=== PATIENT | male | born 1955 | race Caucasian/White ===

== ENCOUNTER → 2016-08-21 | Outpatient (CLI) | payer OTHER ==
[~2016-08-21] MED LIST: ADVIN25050 INH; ALBUAER2 INH; ATOM60CA PO; CETI10TA84 PO; CHOL100010 PO; FLUT0.0529; OMEG10007 PO; TAMS0.4C38 PO
== END | disposition home or self-care (01) ==
LOC: C.CPL 16:51
PROVIDERS: ATTEND Podiatrist Foot & Ankle Surgery
DX: Z01.810 Encounter for preprocedural cardiovascular examination (principal)

== ENCOUNTER → 2016-08-23 | Day surgery (SDC) | payer OTHER ==
[2016-08-16 07:50] VITALS: Ht 180.3 cm; Wt 102.3 kg
--- NOTE | 2016-08-22 14:01 | HISTORY & PHYSICAL EXAMINATION ---
DATE OF ADMISSION: 08/23/2016 HISTORY OF PRESENT ILLNESS: A 61-year-old male presents for followup of preoperative evaluation requesting hardware excision on the left foot. He notes no pain or discomfort over the area but would like to have the fixation removed to avoid any complications in the future. The patient denies having any pain. He noticed the pain has resolved with his current surgery, he underwent a cheilectomy with arthrodesis and is requesting surgery and excision of hardware at this time. He notes no associated signs or symptoms. He notes the swelling is nearly resolved. Past treatment and tests include CT recently radiographs from surgery due to the possible risk in the future of leaving the hardware intact. He is requesting surgical intervention for the hardware being removed. PAST SURGICAL HISTORY: Shoulder surgery in 2015, adenoids and tonsillectomy, wisdom tooth removal. PAST MEDICAL HISTORY: Back problems. MEDICATIONS: Fish oil, Zyrtec. ALLERGIES: CLEOCIN. FAMILY HISTORY: Arthrodesis, diabetes and cancer. SOCIAL HISTORY: The patient denies smoking, alcohol use, illicit drug use. REVIEW OF SYSTEMS: Unremarkable except chief complaint. PHYSICAL EXAMINATION: VITAL SIGNS: BP 125/86, tympanic temperature is 98.4, height 5 feet 11, weight 225. Body mass index 31. CONSTITUTIONAL: The patient appears well-developed and nourished with good attention to body grooming and habitus. HEAD AND FACE: Head is normocephalic and atraumatic without any gross head, face, or neck masses. EYES: Conjunctival and pupillary reaction to light and accommodation are normal. EARS, NOSE, MOUTH, AND THROAT: Unremarkable. NECK: Neck is supple. Trachea is midline. CARDIOVASCULAR: Normal S1, S2. LUNGS: Clear to auscultation bilaterally and equal. GASTROINTESTINAL: Positive bowel sounds noted. LOWER EXTREMITY: Feet are pink and warm with no evidence of vascular insufficiency. DERMATOLOGIC: Cicatrix well healed with no hypertrophy over the left foot. NEUROLOGICAL: Touch, pin, vibratory pain, proprioception sensations are normal for postoperative state. MUSCULOSKELETAL: First metatarsophalangeal joint shows evidence of pain. No range of motion and no tenderness on range of motion. DATA: CT scan on 07/21/2016 in the left leg which shows expected findings a fusion of the first metatarsophalangeal joint, fusion appears complete, hardware is intact. No acute fracture within the left foot, mild arthritis within the left midfoot. IMPRESSION: 1. Status post cheilectomy with arthrodesis. 2. Left first metatarsophalangeal joint on 08/11/2015 with retained fixation. 3. Degenerative joint disease history in the left first metatarsophalangeal joint. 4. Hallux limitus history in the left. PLAN: Procedures to be performed 1. Excision of hardware, left foot. This will be performed under general anesthesia as an outpatient at the surgery center. Procedure, risks and complications were fully reviewed with the patient. Consent form, foot diagram and illustration reviewed in all their entirety. All the patient's questions were answered. Complications were discussed in detail with the patient including pain, infection, swelling that may or may not be excessive, pins and needles feeling, numbness, metatarsalgia, excessive bleeding, delay or nonhealing of bone, delay or nonhealing of skin, enlarged scar, failure of the procedure, recurrence or worsening of condition which may or may not require further surgery, adverse reaction to anesthesia, allergic reaction to suture or other implant material, loss of toe, foot, or leg, flail toe, stiff toe, short toe, elevated toe, transfer lesion or callus, peripheral neurovascular complications such as phlebitis, damage to nerves or vascular structures or chronic pain, chronic nerve pain or damage, and general medical complications. The patient will be required to be in a surgery shoe for a minimum of 1-3 weeks and not return to sneaker for 4-6 weeks depending on postop edema. The patient is aware this is an elective type procedure and I recommended a second opinion. The patient stated they understood. Consent form was signed with a copy of the foot diagram issued to the patient, postop instructions were given. At time of the preoperative appointment, prescriptions for Percocet and erythromycin were dispensed. The patient will return to the office for postop check. Instructed to keep the dressing clean, dry, and intact until seen at the office. JORGE LUIS
[~2016-08-23] VITALS: Ht 180.3 cm; Wt 102.3 kg
[~2016-08-23] MED LIST changes: +ATROPINE SULFATE 0.1 MG/ML 5ML SYR IV PRN; +BUPIVACAINE 0.5 % 5 MG/1 ML MPF 30ML VIAL ONE; +DEXAMETHASONE SOD INJ 4 MG/ML VIAL ONE; +ERYTHROMYCIN LACTOBIONATE IV SCH; +EpHEDrine SULFATE INJ 50 MG/ML AMP IV PRN; +FENTANYL CITRATE INJ 50 MCG/1 ML 2 ML VIAL ONE; +LACTATED RINGER'S 1000ML 1,000 ML IV SCH; +LIDOCAINE HCL 2% 2 ML VIAL (20MG/ML) ONE; +MIDAZOLAM HCL 1 MG/ML 2ML VIAL ONE; +NSS IV SCH; +ONDANSETRON INJ 2 MG/ML 2 ML VIAL ONE; +PROPOFOL IV EMULSION 10 MG/ML 20 ML VIAL IV ONE; +SODIUM CHLORIDE 0.9% 1000ML 1,000 ML IV SCH; +WATER, STERILE FOR INJ 10 ML VIAL ONE; +[UNRECOGNIZED DRUG - OTHER] IV ONE
--- NOTE | 2016-08-23 06:46 | History & Physical Bridge - [place] ---
H&P Re-Evaluation Bridge Note: I have examined the patient, reviewed the History & Physical and in the interval since the performance of the History & Physical I have noted the following changes of clinical significance: No changes noted
--- NOTE | 2016-08-23 06:49 | Discharge Instructions-SurgCtr ---
Discharge Instructions Visit Reason for Visit: Left Foot Retained Hardware Discharge Discharge Diagnosis / Problem: same as diagnosis Discharge Goals Goal(s): Decrease discomfort Medications Stopped Medications Name(s): Flomax, last dose 2 days ago Activity Recommendations Activity Limitations: as noted below Medications: * Resume previous medications unless instructed by your surgeon. * Take your medications as prescribed. Call our office ([phone]) at any time, if you experience severe pain that does not subside shortly after taking your pain medication. Activity: * You may walk on your operated foot/ankle using the surgical shoe or cast/splint. Do not put any weight on your operated foot/ankle without wearing the surgical shoe or cast sandal.. Special Care: * Keep your bandage clean and dry. Do not remove your bandage unless otherwise instructed. A small amount of blood may appear on the bandage over the surgical site. Call our office ([phone]) if you bandage becomes blood-soaked or wet. * Elevate your operated foot/ankle on pillows, above the level of your heart, as often as possible during the first 2-3 days following surgery. Keep your knee flexed slightly with a pillow under your knee when you elevate your foot/ankle. * Apply a ice bag to your foot/ankle over the operative site for 20-30 minutes out of each hour while you are awake. Do not allow the ice bag to directly contact bare skin. * Avoid bumping or handling any pins visible in your toes. If any pin feels or appears loose, call the office ([phone]). * Take your oral temperature in the morning and at bedtime. Call our office ([phone]) if your temperature rises above 101 degrees Fahrenheit. Call your surgeon's office at ([phone]) for any problems or concerns such as excessive bleeding and/or pain unrelieved by your prescribed pain medications. If you have any questions, please do not hesitate to ask them. Avoid all tobacco products. If you need help to stop smoking, call [place]'s FREE QUITLINE at . This is a free call. Follow-up: Follow-up with Dr. Simmons Anesthesia . Post Anesthesia Instructions: If you have had General Anesthesia or IV Sedation: * Do not drive today. * Resume driving when surgeon permits. * Do not make important decisions or sign legal documents today. * Call surgeon for: 1. Temperature elevations greater than 101 degrees F. 2. Uncontrollable pain. 3. Excessive bleeding. 4. Persistent nausea and vomiting. 5. Medication intolerance (nausea, vomiting or rash). * For nausea and vomiting use only clear liquids such as: tea, soda, bouillon until nausea subsides, then gradually increase diet as tolerated. * If you have any concerns or questions, call your surgeon's office. If physician is unavailable and it is an emergency, call 911 or go to the nearest emergency room. . Diet Recommendations Home Diet: resume previous diet Pending Studies Studies pending at discharge: no Medical Emergencies . Who to Call and When: Medical Emergencies: If at any time you feel your situation is an emergency, please call 911 immediately. . Non-Emergent Contact Non-Emergency issues call your: Primary Care Provider . . "Provider Documentation" section prepared by Emely Sierra.
--- NOTE | 2016-08-23 08:39 | OPERATIVE REPORT ---
DATE OF OPERATION: 08/23/2016 PREOPERATIVE DIAGNOSES: Cheilectomy with arthrodesis left first MTPJ with retained fixation. POSTOPERATIVE DIAGNOSES: Same. PROCEDURE: Excision of deep implant, left foot x9. SURGEON: Dr. Simmons. SEARCH STRATEGIST: None. ANESTHESIA: IV with local sedation with local field block performed with 0.5% Marcaine plain, total of 30 mL. HEMOSTASIS: Pneumatic ankle tourniquet inflated to a level of 250 mmHg for a total tourniquet time of 45 minutes. ESTIMATED BLOOD LOSS: Minimal. MATERIALS: 2-0, 3-0 Vicryl, 4-0 nylon, 5-0 PDS. INJECTABLES: None. COMPLICATIONS: None. The patient tolerated the procedure and anesthesia well without complications, transferred to recovery room with vital signs stable and neurovascular status intact. PROCEDURE: The patient was brought to the OR and placed on the OR table in supine position. Upon completion of IV sedation, local field block was performed with 30 mL 0.5% Marcaine plain. A well-padded ankle tourniquet was applied to the left lower extremity. The extremity was scrubbed, prepped and draped in the usual aseptic fashion over previous incision. Incision was made down to the level of capsular structures. Care was taken to preserve all neurovascular structures. The capsule was quite thickened and incised revealing a plate and 9 screws. These were removed in total. There was irrigation of the site. Closure began of the capsular structures using 2-0 Vicryl. Superficial deep structures closed using 3-0 Vicryl. Skin margins closed using subcuticular fashion 5-0 PDS interspersed with 4-0 nylon in a simple interrupted fashion. Pneumatic ankle tourniquet was released with normal hyperemic foreman to digits 1 through 5. The patient tolerated the procedure and anesthesia well without complications and transferred to the recovery room with vital signs stable and neurovascular status intact. I attest to the content of the Intraoperative Record and any orders documented therein. Any exceptio ns are noted below.
--- NOTE | 2016-08-23 08:44 | Anesthesia Progress Nt - [facility] ---
Anesthesia Post Op Note Date & Time Aug 23, 2016 at 08:43 Vital Signs Pain Intensity: 0 Vital Signs Past 12 Hours Date Time Temp Pulse Resp B/P Pulse Ox O2 Delivery O2 Flow Rate FiO2 08/23/16 08:26 36.4 56 12 137/82 98 Room Air 08/23/16 06:27 36.9 76 16 136/87 96 Room Air Notes Mental Status: alert / awake / arousable, participated in evaluation Pt Amnestic to Procedure: Yes Nausea / Vomiting: adequately controlled Pain: adequately controlled Airway Patency, RR, SpO2: stable & adequate BP & HR: stable & adequate Hydration State: stable & adequate Anesthetic Complications: no major complications apparent
[2016-08-23 08:58] VITALS: BP 140/84; PULSE 64; TEMP 36.4; O2SAT 96
--- NOTE | 2016-08-23 10:50 | DIAGNOSTIC IMAGING REPORT ---
INTRAOPERATIVE LEFT FOOT SINGLE VIEW CLINICAL HISTORY: LT FOOT HARDWARE EXCISION COMPARISON STUDY: CT scan dated 08-04 FLUOROSCOPY TIME: 3 seconds. A single fluoroscopic spot images provided for interpretation.. FINDINGS: There is been interval removal of the hardware at the level of the first metatarsal phalangeal joint. Multiple screw tracks are visualized. There is evidence for bony fusion. IMPRESSION: Interval removal of the hardware at the level of the first metatarsal phalangeal joint. Electronically signed by: Blanco Banks M.D. 08/23/2016 10:48 AM
== END | disposition home or self-care (01) ==
LOC: X.SURG 06:08
PROVIDERS: ATTEND Podiatrist Foot & Ankle Surgery
DX: Z47.2 Encounter for removal of internal fixation device (principal); J45.909 Unspecified asthma, uncomplicated; E66.9 Obesity, unspecified; Z98.890 Other specified postprocedural states; Z90.89 Acquired absence of other organs; Z98.818 Other dental procedure status; Z88.1 Allergy status to other antibiotic agents; Z68.31 Body mass index [BMI] 31.0-31.9, adult; Z98.42 Cataract extraction status, left eye

== ENCOUNTER → 2016-11-27 | Outpatient (CLI) | payer OTHER ==
[~2016-11-27] MED LIST changes: -ATROPINE SULFATE 0.1 MG/ML 5ML SYR IV PRN; -BUPIVACAINE 0.5 % 5 MG/1 ML MPF 30ML VIAL ONE; -DEXAMETHASONE SOD INJ 4 MG/ML VIAL ONE; -ERYTHROMYCIN LACTOBIONATE IV SCH; -EpHEDrine SULFATE INJ 50 MG/ML AMP IV PRN; -FENTANYL CITRATE INJ 50 MCG/1 ML 2 ML VIAL ONE; -LACTATED RINGER'S 1000ML 1,000 ML IV SCH; -LIDOCAINE HCL 2% 2 ML VIAL (20MG/ML) ONE; -MIDAZOLAM HCL 1 MG/ML 2ML VIAL ONE; -NSS IV SCH; -ONDANSETRON INJ 2 MG/ML 2 ML VIAL ONE; -PROPOFOL IV EMULSION 10 MG/ML 20 ML VIAL IV ONE; -SODIUM CHLORIDE 0.9% 1000ML 1,000 ML IV SCH; -WATER, STERILE FOR INJ 10 ML VIAL ONE; -[UNRECOGNIZED DRUG - OTHER] IV ONE
--- NOTE | 2016-11-27 10:37 | DIAGNOSTIC IMAGING REPORT ---
[facility] CLINICAL HISTORY: Nephrolithiasis. COMPARISON STUDY: [facility] November 24, 2015. FINDINGS: Pelvic calcifications likely reflect phleboliths. No urinary calculi are visualized on this exam. Bowel gas pattern is normal. IMPRESSION: No urinary calculi identified. Electronically signed by: Jameson Mccall M.D. 11/27/2016 10:35 AM Dictated Date/Time: 11/27/2016 10:33 AM
== END | disposition home or self-care (01) ==
LOC: C.RADBC 09:58
PROVIDERS: ATTEND Nurse Practitioner Family
DX: N20.0 Calculus of kidney (principal)

== ENCOUNTER → 2017-12-03 | Outpatient (CLI) | payer OTHER ==
--- NOTE | 2017-12-03 11:57 | DIAGNOSTIC IMAGING REPORT ---
[facility] CLINICAL HISTORY: N20.0 Nephrolithiasis COMPARISON STUDY: 11/27/2016 FINDINGS: There is no pathologic bowel dilatation. There are no calcifications suspicious for renal calculi. There is a nonspecific 5 mm right pelvic basin calcification. IMPRESSION: 1. No evidence of pathologic bowel dilatation 2. No renal calculi identified on conventional radiographic imaging 3. Nonspecific 5 mm right pelvic basin calcification. Electronically signed by: Blanco Banks M.D. 12/03/2017 11:56 AM Dictated Date/Time: 12/03/2017 11:53 AM
== END | disposition home or self-care (01) ==
LOC: C.RADBC 11:27
PROVIDERS: ATTEND Urology
DX: N20.0 Calculus of kidney (principal)